=== PATIENT | male | born 1975 | race African-American/Black ===

== ENCOUNTER 2025-04-25 16:51 | Emergency (ER) | payer OTHER ==
[2025-04-25 17:39] VITALS: RESP 18; TEMP 99.1
[2025-04-25 18:25] VITALS: PULSE 90
[2025-04-25] MEDS: amLODIPine 5 MG TAB PO STA (20:02)
[2025-04-25 20:20] LABS: Basophils # (A) 0.02 10*3/uL (0.00-0.10); Basophils % (A) 0.4 %; Eosinophils # (A) 0.05 10*3/uL (0.04-0.35); Eosinophils % (A) 0.9 %; HCT 38.8 % (39.6-50.0); HGB 14.2 g/dL (13.0-17.0); Immature Platelet Fraction 7.1 % (1.1-6.1); Lymphocytes # (A) 1.17 10*3/uL (0.90-5.00); Lymphocytes % (A) 21.7 %; MCH 35.2 pg (27.0-32.0); MCHC 36.6 g/dL (32.0-37.0); MCV 96.3 fL (80.0-97.0); Monocytes # (A) 0.45 10*3/uL (0.20-1.00); Monocytes % (A) 8.3 %; Neutrophils # (A) 3.69 10*3/uL (1.80-7.70); Neutrophils % (A) 68.3 %; RBC 4.03 10*6/uL (4.40-5.60); RDW 13.0 % (11.5-14.5); WBC 5.40 10*3/uL (4.50-10.00)
[2025-04-25 20:22] LABS: Platelet Count 120 10*3/uL (140-440)
[2025-04-25 20:36] LABS: ALT 23 U/L (4-49); AST 40 U/L (17-59); African American GFR (CKD) >90 (>60 ml/min/1.73 sqM); Albumin 4.2 g/dL (3.5-5.0); Alkaline Phosphatase 56 U/L (38-126); Anion Gap 11 mmol/L; Blood Urea Nitrogen 14 mg/dL (9-20); Calcium 9.2 mg/dL (8.4-10.2); Carbon Dioxide 24 mmol/L (22-30); Chloride 99 mmol/L (98-107); Glucose 87 mg/dL (74-99); Non-African American GFR(CKD) >90 (>60 ml/min/1.73 sqM); Potassium 4.1 mmol/L (3.5-5.1); Sodium 134 mmol/L (137-145); Total Protein 7.4 g/dL (6.3-8.2)
--- NOTE | 2025-04-25 20:47 | ED ---
General Adult HPI - General Chief complaint: Recheck/Abnormal Lab/Rx Stated complaint: Abd BP Time Seen by Provider: 04/25/25 17:10 Source: patient Mode of arrival: ambulatory Limitations: no limitations - History of Present Illness Initial comments: 49-year-old male presents to the emergency department reporting high blood pressure. Patient is a resident at [facility]. He was found to have elevated blood pressure and was sent over to our emergency department. He denies having symptoms. States that previously he was on lisinopril and Norvasc for his blood pressure and it controlled it well. States that they changed him to losartan at [facility] and they have not been giving it to him. He denies headaches. No chest pain. No calf pain or swelling. No other alleviating, precipitating or modifying factors - Related Data Previous Rx's Medication Instructions Recorded amLODIPine [Norvasc] 2.5 mg PO DAILY 30 Days #30 tablet 04/25/25 lisinopriL [Prinivil] 20 mg PO DAILY 30 Days #30 tablet 04/25/25 Allergies Allergy/AdvReac Type Severity Reaction Status Date / Time No Known Allergies Allergy Verified 04/25/25 17:07 Review of Systems ROS Statement: Those systems with pertinent positive or pertinent negative responses have been documented in the HPI. ROS Other: All systems not noted in ROS Statement are negative. Past Medical History Past Medical History: Hypertension History of Any Multi-Drug Resistant Organisms: None Reported Past Surgical History: No Surgical Hx Reported Past Psychological History: No Psychological Hx Reported Smoking Status: Current every day smoker Past Alcohol Use History: Daily, Heavy Past Drug Use History: Marijuana General Exam Limitations: no limitations General appearance: alert, in no apparent distress Head exam: Present: atraumatic, normocephalic, normal inspection Eye exam: Present: normal appearance, PERRL, EOMI. Absent: scleral icterus, conjunctival injection, periorbital swelling ENT exam: Present: normal exam, mucous membranes moist Neck exam: Present: normal inspection. Absent: tenderness, meningismus, lymphadenopathy Respiratory exam: Present: normal lung sounds bilaterally. Absent: respiratory distress, wheezes, rales, rhonchi, stridor Cardiovascular Exam: Present: regular rate, normal rhythm, normal heart sounds. Absent: systolic murmur, diastolic murmur, rubs, gallop, clicks GI/Abdominal exam: Present: soft, normal bowel sounds. Absent: distended, tenderness, guarding, rebound, rigid Extremities exam: Present: normal inspection, full ROM, normal capillary refill. Absent: tenderness, pedal edema, joint swelling, calf tenderness Back exam: Present: normal inspection Neurological exam: Present: alert, oriented X3, CN II-XII intact Psychiatric exam: Present: normal affect, normal mood Skin exam: Present: warm, dry, intact, normal color. Absent: rash Course Vital Signs 04/25/25 04/25/25 04/25/25 17:05 17:37 18:24 Temperature 99.7 F H 99.1 F Pulse Rate 99 100 90 Respiratory 20 18 18 Rate Blood Pressure 166/117 162/109 163/110 O2 Sat by Pulse 100 98 100 Oximetry 04/25/25 21:33 Temperature Pulse Rate Respiratory Rate Blood Pressure 161/98 O2 Sat by Pulse Oximetry Medical Decision Making - Medical Decision Making Was pt. sent in by a medical professional or institution (, PA, LICENSED PRACTICAL NURSE, urgent care, hospital, or retirement...) When possible be specific @ -Patient was sent in from [facility] Did you speak to anyone other than the patient for history (EMS, parent, family, police, friend...)? What history was obtained from this source @ -I spoke with EMS for history Did you review nursing and triage notes (agree or disagree)? Why? @ -I reviewed and agree with nursing and triage notes Were old charts reviewed (outside hosp., previous admission, EMS record, old EKG, old radiological studies, urgent care reports/EKG's, retirement records)? Report findings @ -No old charts were reviewed Differential Diagnosis (chest pain, altered mental status, abdominal pain women, abdominal pain men, vaginal bleeding, weakness, fever, dyspnea, syncope, headache, dizziness, GI bleed, back pain, seizure, CVA, palpatations, mental health, musculoskeletal)? @ -Hypertension, intracranial hemorrhage, ME, renal artery stenosis EKG interpreted by me (3pts min.). @ -Not done X-rays interpreted by me (1pt min.). @ -None done CT interpreted by me (1pt min.). @ -None done U/S interpreted by me (1pt. min.). @ -None done What testing was considered but not performed or refused? (CT, X-rays, U/S, labs)? Why? @ -None What meds were considered but not given or refused? Why? @ -None Did you discuss the management of the patient with other professionals (professionals i.e. , PA, LICENSED PRACTICAL NURSE, lab, RT, psych nurse, psychiatric social worker supervisor, buffer copper, teacher, property and supply officer, nurse case management)? Give summary @ -No Was smoking cessation discussed for >3mins.? @ -No Was critical care preformed (if so, how long)? @ -No Were there social determinants of health that impacted care today? How? (Homelessness, low income, unemployed, alcoholism, drug addiction, transportation, low edu. Level, literacy, decrease access to med. care, [facility], rehab)? @ -Patient is currently in rehab Was there de-escalation of care discussed even if they declined (Discuss DNR or withdrawal of care, Hospice)? DNR status @ -No What co-morbidities impacted this encounter? (DM, HTN, Smoking, COPD, CAD, Cancer, CVA, ARF, Chemo, Hep., AIDS, mental health diagnosis, sleep apnea, morbid obesity)? @ -Hypertension Was patient admitted / discharged? Hospital course, mention meds given and route, prescriptions, significant lab abnormalities, going to OR and other pertinent info. @ -Upon arrival patient seen and evaluated in hallway 11. Thorough history and physical exam was performed. Laboratory studies are conducted. Patient was given his home dose of blood pressure medications and prescriptions are called into the pharmacy. Patient will be started back on his original blood pressure medications which do appear to control his blood pressure well. He is to return for any new or worsening symptoms Undiagnosed new problem with uncertain prognosis? @ -No Drug Therapy requiring intensive monitoring for toxicity (Heparin, Nitro, Insulin, Cardizem)? @ -No Were any procedures done? @ -No Diagnosis/symptom? @ -Accelerated hypertension, history of hypertension Acute, or Chronic, or Acute on Chronic? @ -Acute Uncomplicated (without systemic symptoms) or Complicated (systemic symptoms)? @ -Complicated Side effects of treatment? @ -No Exacerbation, Progression, or Severe Exacerbation? @ -No Poses a threat to life or bodily function? How? (Chest pain, USA, ME, pneumonia, PE, COPD, DKA, ARF, appy, cholecystitis, CVA, Diverticulitis, Homicidal, Suicidal, threat to staff... and all critical care pts) @ -No - Lab Data Result diagrams: 04/25/25 20:00 04/25/25 20:00 Lab Results 04/25/25 04/25/25 Range/Units 20:00 20:00 WBC 5.40 (4.50-10.00) 10*3/uL RBC 4.03 L (4.40-5.60) 10*6/uL Hgb 14.2 (13.0-17.0) g/dL Hct 38.8 L (39.6-50.0) % MCV 96.3 (80.0-97.0) fL MCH 35.2 H (27.0-32.0) pg MCHC 36.6 (32.0-37.0) g/dL Plt Count 120 L (140-440) 10*3/uL MPV 11.5 (9.5-12.2) fL Immature Gran % (Auto) 0.4 % Neutrophils % 68.3 % Lymphocytes % 21.7 % Monocytes % 8.3 % Eosinophils % 0.9 % Basophils % 0.4 % Immature Gran # 0.02 (0.00-0.04) 10*3/uL Neutrophils # 3.69 (1.80-7.70) 10*3/uL Lymphocytes # 1.17 (0.90-5.00) 10*3/uL Monocytes # 0.45 (0.20-1.00) 10*3/uL Eosinophils # 0.05 (0.04-0.35) 10*3/uL Basophils # 0.02 (0.00-0.10) 10*3/uL Immature Plt Fraction 7.1 H (1.1-6.1) % Sodium 134 L (137-145) mmol/L Potassium 4.1 (3.5-5.1) mmol/L Chloride 99 (98-107) mmol/L Carbon Dioxide 24 (22-30) mmol/L Anion Gap 11 mmol/L BUN 14 (9-20) mg/dL Creatinine 0.83 (0.66-1.25) mg/dL Est GFR (CKD-EPI)AfAm >90 (>60 ml/min/1.73 sqM) Est GFR (CKD-EPI)NonAf >90 (>60 ml/min/1.73 sqM) Glucose 87 (74-99) mg/dL Calcium 9.2 (8.4-10.2) mg/dL Total Bilirubin 0.3 (0.2-1.3) mg/dL AST 40 (17-59) U/L ALT 23 (4-49) U/L Alkaline Phosphatase 56 (38-126) U/L Total Protein 7.4 (6.3-8.2) g/dL Albumin 4.2 (3.5-5.0) g/dL Disposition Clinical Impression: Accelerated hypertension Disposition: HOME SELF-CARE Condition: Stable Instructions (If sedation given, give patient instructions): Chronic Hypert ension (ED) Additional Instructions: Please stop taking the losartan. Start taking the lisinopril and Norvasc tomorrow. Return for any new or worsening symptoms Prescriptions: amLODIPine [Norvasc] 2.5 mg PO DAILY 30 Days #30 tablet lisinopriL [Prinivil] 20 mg PO DAILY 30 Days #30 tablet Is patient prescribed a controlled substance at d/c from ED?: No Referrals: None,Stated [Primary Care Provider] - 1-2 days Time of Disposition: 20:46
[2025-04-25 21:34] VITALS: BP 161/98
== END 2025-04-25 21:51 | disposition home or self-care (01) ==
LOC: EC 16:51
DX: I10 Essential (primary) hypertension (principal); F17.200 Nicotine dependence, unspecified, uncomplicated
CPT/HCPCS: 36415; 80053; 85025; 99284